=== PATIENT | female | born 1965 | race Caucasian/White ===

== ENCOUNTER → 2017-05-10 16:09 | Outpatient (CLI) | payer BC | END | disposition home or self-care (01) | LOC: D.MAMMO 10:15 | DX: Z12.31 Encounter for screening mammogram for malignant neoplasm of breast (principal) ==

== ENCOUNTER 2019-05-09 12:30 | Outpatient (CLI) | payer BC | END 2019-05-09 13:30 | disposition home or self-care (01) | LOC: D.MAMMO 12:30 | PROVIDERS: ATTEND Family Medicine | DX: Z12.31 Encounter for screening mammogram for malignant neoplasm of breast (principal) ==

== ENCOUNTER 2020-03-04 06:29 | Day surgery (SDC) | payer BC ==
[~2020-03-04] VITALS: Ht 170.2 cm; Wt 79.4 kg
[~2020-03-04 06:29] MED LIST: ALBUTEROL0.63 MG/3; ARMOUR THYROID30 MG PO; ESTRODIOL PO; MOBIC7.5 MG PO; PROMETRIUM200 MG PO; PROZAC40 MG PO
[2020-03-04 07:41] VITALS: BP 130/85; Ht 170.2 cm; Wt 79.4 kg
[2020-03-04 07:42] LABS: HEMATOCRIT 40.5 % (36.0-48.0); HEMOGLOBIN 12.9 g/dL (12-16); MCHC 31.9 g/dL (31.0-37.0); MEAN PLATELET VOLUME 8.8 fL (7.4-10.4); RBC 4.45 10x6/uL (4.00-5.40); RDW 13.4 % (11.5-14.5); WBC 9.5 10x3/uL (4.8-10.8)
--- NOTE | 2020-03-04 10:21 | NUR ---
DC INSTRUCTIONS GIVEN TO PT/FAMILY. STATE UNDERSTANDING. DC'D IV CATH FULLY INTACT. PT VOIDED
--- NOTE | 2020-03-04 10:34 | NUR ---
PT LEFT UNIT VIA WC AT 1026
--- NOTE | 2020-03-15 17:11 | OP ---
PATIENT NAME: BENNIE TAYLOR MEDICAL RECORD: [id number] :61 LOCATION:D.OPS ADMISSION DATE: SURGEON: TRACY ABREU MD DATE OF OPERATION: 03/04/2020 PREOPERATIVE DIAGNOSES: 1. Pelvic pain. 2. History of interstitial cystitis. POSTOPERATIVE DIAGNOSES: 1. Pelvic pain. 2. History of interstitial cystitis. PROCEDURE: 1. Exam under anesthesia. 2. Cystoscopy with hydrodistention. SURGEON: Tracy Abreu MD SALES NEGOTIATOR: Chon Bassett. ANESTHESIOLOGIST: Dr. Hinton. ANESTHETIC: General with LMA. FINDINGS: Vaginal vault is unremarkable. No masses palpated on bimanual exam. At the time of cystoscopy, no ulcerations are seen. Some fronds are noted at the UVJ. No exudate is seen from the urethral meatus. After distention of the bladder glomerulations are visualized and bloody effluent noted at the end of removal of distention media. SPECIMENS REMOVED: None. SPECIMEN DISPOSITION: None applicable. ESTIMATED BLOOD LOSS: Minimal. FLUIDS: 700 cc lactated Ringer's. URINE OUTPUT: Quantity sufficient void prior to this procedure. COMPLICATIONS: None. DRAINS: None. INDICATIONS: The patient is a 54-year-old female with a history of pelvic pain. On bimanual examination, the patient has pain over her bladder and has also had a history of interstitial cystitis. The patient is consented for exam under anesthesia and cystoscopy with hydrodistention. DESCRIPTION OF PROCEDURE: After informed consent was assured, the patient was taken to the operating room where anesthetic was obtained. The patient was now prepped and draped in the usual sterile fashion. The bimanual exam was performed without palpation of mass or irregularity. The cuff was visualized with no abnormality or mass. Cystoscopy was now performed. A 70-degree scope OPERATIVE REPORT [id number] BENNIE TAYLOR was inserted under direct visualization with distention of the bladder using water. The distention media was held 80-100 cm above the level of the bladder. The distention media was allowed to flow until maximum capacity was reached and flow was no longer occurring. The distention media was now released with noted some bloody effluent at the end of removal of distention media. Cystoscopy again was performed at this time revealing no punctations, but glomerulations are noted. The distention media was now removed and 51489 units of heparin and 10 cc of lidocaine without epinephrine was placed. Sponge, lap, needle counts were correct times 2. The patient was awakened and went to recovery room in stable condition. TRANSINT:[id number] Voice Confirmation ID: [id number] DOCUMENT ID: [id number] TRACY ABREU MD at 1711 CC: [id number] DICTATION DATE: 03/04/20 0850 COAT CHECKER: 03/04/20 194 [facility] 03/04/20 [id number] [place] [address]
== END 2020-03-04 10:26 | disposition home or self-care (01) ==
LOC: D.OPS 06:29 → D.PAN 09:00 → D.OPS 09:00
PROVIDERS: Anesthesiology; ATTEND Obstetrics & Gynecology
DX: R10.2 Pelvic and perineal pain (principal); N30.10 Interstitial cystitis (chronic) without hematuria